=== PATIENT | female | born 1950 | race Caucasian/White ===

== ENCOUNTER 2017-01-21 06:50 | Day surgery (SDC) | payer BC ==
--- NOTE | ~2017-01-21 | EGD ---
EGD REPORT [facility] [address] [place] [address] NAME: CATHY SHARMA : [birth year] STATUS : REG [facility]#: [id number] AGE: 66 ADM/REG DATE : 01/21/17 MR#: [id number] REPORT SERV DATE: 01/21/17 DICTATED BY: JADE MARTIN DATE: 01/21/17 REPORT STATUS : Draft [facility] DATE: 01/21/17 [facility] Center Patient Name: Cathy Sharma Date of : 1950 Attending MD: JADE MARTIN MD Procedure Date No Time: 01/21/2017 Procedure: Colonoscopy Indications: Screening for colorectal malignant neoplasm Referring MD: NORMAN BAILEY Medicines: as per anesthesia Complications: No immediate complications. Procedure: Pre-Anesthesia Assessment: - ASA Grade Assessment: III - A patient with severe systemic disease. After I obtained informed consent, the scope was passed under direct vision. Throughout the procedure, the patient's blood pressure, pulse, and oxygen saturations were monitored continuously. The PCF [id number] was introduced through the anus and advanced to the cecum, identified by appendiceal orifice and ileocecal valve. The colonoscopy was performed without difficulty. The patient tolerated the procedure. The quality of the bowel preparation was adequate to identify polyps. Findings: The perianal and digital rectal examinations were normal. Multiple small and large-mouthed diverticula were found in the sigmoid colon and in the descending colon. Internal hemorrhoids were found during endoscopy and were mild. Impression: - Diverticulosis in the sigmoid colon and in the descending colon. - Internal hemorrhoids. Recommendation: - Repeat colonoscopy in 10 years for surveillance. Procedure Code(s): --- Professional --- 36062, Colonoscopy, flexible, proximal to splenic flexure; diagnostic, with or without collection of specimen(s) by brushing or washing, with or without colon decompression (separate procedure) Diagnosis Code(s): --- Professional --- K64.8, Other hemorrhoids K57.30, Diverticulosis of large intestine without EGD REPORT [facility] [address] [place], [place] [address]day[facility] [place]. [address] NAME: CATHY SHARMA : [birth year] STATUS : REG [facility] PAT#: [id number] AGE: 66 ADM/REG DATE : 01/21/17 MR#: [id number] REPORT SERV DATE: 01/21/17 DICTATED BY: JADE MARTIN. DATE: 01/21/17 REPORT STATUS : Draft TRANSCRIBED BY: [employer] DATE: 01/21/17 perforation or abscess without bleeding Z12.11, Encounter for screening for malignant neoplasm of colon CPT copyright 2013 [employer]. All rights reserved. The codes documented in this report are preliminary and upon bulk sealer review may be revised to meet current compliance requirements. JADE MARTIN MD 01/21/2017 8:58 AM This report has been signed electronically. Number of Addenda: 0 Note Initiated On: 01/21/2017 8:20 AM Scope Withdrawal Time 0 hours 8 minutes 25 seconds [address] [place] [address]
[~2017-01-21 06:50] MED LIST: ASAB PO; FORTAMET500 MG PO; LISINOPRIL; METFORMIN; NASACORTAQ NAS; PRIN10 PO; XYZAL5 MG PO; ZOCOR; ZOCOR20 PO
== END 2017-01-21 23:59 | disposition home or self-care (01) ==
LOC: DMU 06:50
PROVIDERS: Internal Medicine Gastroenterology
PROC: 0DJD8ZZ Inspection of Lower Intestinal Tract, Via Natural or Artificial Opening Endoscopic (ICD-10-PCS; principal; 2017-01-21 08:00)
DX: Z12.11 Encounter for screening for malignant neoplasm of colon (principal); K64.8 Other hemorrhoids; K57.30 Diverticulosis of large intestine without perforation or abscess without bleeding; G47.33 Obstructive sleep apnea (adult) (pediatric); E11.9 Type 2 diabetes mellitus without complications; K21.9 Gastro-esophageal reflux disease without esophagitis; E66.01 Morbid (severe) obesity due to excess calories; M19.90 Unspecified osteoarthritis, unspecified site; Z90.710 Acquired absence of both cervix and uterus; Z98.890 Other specified postprocedural states
CPT/HCPCS: 82962